=== PATIENT | male | born 1970 | race Caucasian/White ===

== ENCOUNTER 2022-11-28 14:53 | Outpatient (CLI) | payer OTHER, SELFPAY | END 2022-11-28 14:54 | disposition home or self-care (01) | PROVIDERS: PCP Family Medicine; Visit Provider Family Medicine | DX: Z00.00 Encounter for general adult medical examination without abnormal findings (principal); Z13.6 Encounter for screening for cardiovascular disorders; Z12.5 Encounter for screening for malignant neoplasm of prostate; Z11.59 Encounter for screening for other viral diseases | CPT/HCPCS: 80053; 80061; 84153; 86803 ==

== ENCOUNTER 2024-06-13 07:48 | Outpatient (CLI) | payer OTHER, SELFPAY | END 2024-06-13 07:49 | disposition home or self-care (01) | PROVIDERS: PCP Family Medicine; Visit Provider Family Medicine | DX: I10 Essential (primary) hypertension (principal); Z12.5 Encounter for screening for malignant neoplasm of prostate; Z13.220 Encounter for screening for lipoid disorders | CPT/HCPCS: 80053; 80061; 82043; 82570; G0103 ==

== ENCOUNTER 2025-05-24 15:03 | Outpatient (CLI) | payer OTHER, SELFPAY | END 2025-05-24 15:04 | disposition home or self-care (01) | PROVIDERS: PCP Family Medicine; Visit Provider Family Medicine | DX: I10 Essential (primary) hypertension (principal); G25.81 Restless legs syndrome; Z13.6 Encounter for screening for cardiovascular disorders; Z13.1 Encounter for screening for diabetes mellitus; Z12.5 Encounter for screening for malignant neoplasm of prostate; Z82.49 Family history of ischemic heart disease and other diseases of the circulatory system | CPT/HCPCS: 80053; 80061; 82043; 82570; G0103 ==

== ENCOUNTER 2025-07-27 09:33 | Outpatient (CLI) | payer OTHER, SELFPAY ==
--- NOTE | 2025-08-22 09:47 | W.PM.SLEEP ---
Sleep Study Details Details Interpreting Provider: Kristen Date of Sleep Study: 07/27/25 Sleep Study Details: STUDY TYPE:? Home unattended ? BMI:? 33.38 ORDERING PROVIDER:? Kristen INDICATION:? Concern for sleep apnea ? SLEEP SUMMARY:? 496 minutes monitored RESPIRATORY SUMMARY:? AHI 32.6 per rule 1 8, 23.7 per CMS guideline Low oxygen 80 0.9% of study oxygen less than 90% Snoring 96.4% PERIODIC LIMB MOVEMENTS OF SLEEP:? Not recorded CARDIAC:? Range 51-100, mean 67.5 beats per minute IMPRESSION:? Severe obstructive sleep apnea RECOMMENDATION: Treatment options include CPAP. Weight loss may be of some benefit.
== END 2025-07-27 09:34 | disposition home or self-care (01) ==
LOC: SLEEP 09:34
PROVIDERS: PCP Family Medicine; Visit Provider Otolaryngology
DX: G47.33 Obstructive sleep apnea (adult) (pediatric) (principal)
CPT/HCPCS: 95806